=== PATIENT | male | born 1935 | race Native Hawaiian/Other Pacific Islander ===

== ENCOUNTER 2017-04-08 13:55 | Outpatient (CLI) | payer OTHER ==
[2017-04-08 14:29] LABS: POTASSIUM 3.5 mmol/L (3.6-5.2); SODIUM 140 mmol/L (136-145)
[2017-04-08 14:51] LABS: PLATELET COUNT 206 K/uL (142-355)
== END 2017-04-08 19:38 | disposition home or self-care (01) ==
LOC: LAB 13:55
PROVIDERS: Nurse Practitioner Family
DX: K21.9 Gastro-esophageal reflux disease without esophagitis (principal); I10 Essential (primary) hypertension; E55.9 Vitamin D deficiency, unspecified; Z79.899 Other long term (current) drug therapy; N40.0 Benign prostatic hyperplasia without lower urinary tract symptoms; Z51.81 Encounter for therapeutic drug level monitoring
CPT/HCPCS: 80053; 80061; 82306; 82607; 83036; 84154; 84436; 84443; 85027

== ENCOUNTER 2017-12-08 14:40 | Outpatient (CLI) | payer OTHER ==
[2017-12-08 15:14] LABS: PLATELET COUNT 234 K/uL (142-355)
[2017-12-08 15:27] LABS: POTASSIUM 3.6 mmol/L (3.6-5.2)
== END 2017-12-08 21:34 | disposition home or self-care (01) ==
LOC: LAB 14:40
PROVIDERS: Nurse Practitioner Family
DX: I10 Essential (primary) hypertension (principal); E11.9 Type 2 diabetes mellitus without complications; Z79.899 Other long term (current) drug therapy; Z51.81 Encounter for therapeutic drug level monitoring; E55.9 Vitamin D deficiency, unspecified; Z12.5 Encounter for screening for malignant neoplasm of prostate; K21.9 Gastro-esophageal reflux disease without esophagitis; E78.00 Pure hypercholesterolemia, unspecified; Z00.00 Encounter for general adult medical examination without abnormal findings
CPT/HCPCS: 80053; 80061; 80074; 82306; 83036; 84153; 84436; 84443; 85027; 86592; 87490; 87535; 87590

== ENCOUNTER 2018-01-19 10:26 | Outpatient (CLI) | payer OTHER | END 2018-01-19 22:49 | disposition home or self-care (01) | LOC: RAD 10:26 | DX: J40 Bronchitis, not specified as acute or chronic (principal) ==

== ENCOUNTER 2018-01-28 11:34 | Observation (INO) | payer OTHER ==
[~2018-01-28] VITALS: Ht 177.8 cm; Wt 82.1 kg
[2018-01-28 14:40] VITALS: BP 129/75; TEMP 98.8; Ht 177.8 cm; Wt 82.1 kg
[2018-01-28 15:01] LABS: PLATELET COUNT 241 K/uL (142-355)
[2018-01-28 15:06] LABS: PARTIAL THROMBOPLASTIN TIME 23.7 SECONDS (24.5-33.6)
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
[2018-01-28 16:00] VITALS: BP 145/76; TEMP 98.5
[2018-01-28] MEDS ORDERED: VALSARTAN160 MG PO (18:25)
[2018-01-28] MEDS ORDERED: AMLO2.5T PO (18:25)
[2018-01-28] MEDS ORDERED: RANITIDINE 150150 MG PO (18:26)
[2018-01-28 20:10] VITALS: BP 139/68; TEMP 98.9
[2018-01-29 00:17] VITALS: BP 131/72; TEMP 98.8
[2018-01-29 04:17] VITALS: BP 137/78; TEMP 98.9
[2018-01-29 05:29] LABS: PLATELET COUNT 237 K/uL (142-355)
[2018-01-29 05:47] LABS: POTASSIUM 3.8 mmol/L (3.6-5.2)
--- NOTE | 2018-01-29 07:30 | NUR ---
LLE ASSESSED. 13.5 INCHES ON CALF AND 16 INCHES ON THIGH MEASURED. NO REDDNESS OR HEAT NOTED. WILL CONTINUE TO MONNITOR. PT EDUCATEED ON DECRESING MOBILITY. NAD NOTED.
[2018-01-29 07:46] VITALS: BP 130/76; TEMP 98.1
--- NOTE | 2018-01-29 08:29 | NUR ---
MD AND DESIGN SALES CONSULTANT IN TO TALK WITH PT ABOUT CARE. NAD NOTED. WILL CONTINUE TO MONITOR.
[2018-01-29] MEDS ORDERED: ELIQUIS2.5 MG PO (08:57)
--- NOTE | 2018-01-29 09:25 | NUR ---
PT REQUEST TO AMBULATE OUT. NAD NOTED.
== END 2018-01-29 09:25 | disposition home or self-care (01) ==
LOC: US 11:34 → MED/SURG 13:02
PROVIDERS: ADMIT Family Medicine
DX: I82.402 Acute embolism and thrombosis of unspecified deep veins of left lower extremity (principal); I10 Essential (primary) hypertension; E78.4 Other hyperlipidemia
CPT/HCPCS: 36415; 36591; 80053; 85027; 85610; 85730; 93005; 99220; G0378

== ENCOUNTER 2018-02-02 16:24 | Emergency (ER) | payer OTHER ==
[~2018-02-02] VITALS: Ht 177.8 cm; Wt 81.6 kg
[~2018-02-02 16:24] MED LIST: AMLO2.5T PO; ELIQUIS2.5 MG PO; RANITIDINE 150150 MG PO; VALSARTAN160 MG PO
[2018-02-02 17:15] VITALS: BP 148/80; TEMP 98.2
== END 2018-02-02 17:15 | disposition home or self-care (01) ==
LOC: ED 16:24
DX: I82.402 Acute embolism and thrombosis of unspecified deep veins of left lower extremity (principal)
CPT/HCPCS: 99281

== ENCOUNTER 2018-10-02 10:51 | Emergency (ER) | payer OTHER ==
[~2018-10-02] VITALS: Ht 177.8 cm; Wt 83.9 kg
[2018-10-02 11:00] VITALS: TEMP 97.7
[2018-10-02 11:26] LABS: PLATELET COUNT 244 K/uL (142-355)
[2018-10-02 11:34] LABS: POTASSIUM 3.8 mmol/L (3.6-5.2)
[2018-10-02 11:41] LABS: PARTIAL THROMBOPLASTIN TIME 21.9 SECONDS (24.5-33.6)
[2018-10-02 12:38] VITALS: BP 156/78
== END 2018-10-02 12:38 | disposition home or self-care (01) ==
LOC: ED 10:51
PROVIDERS: Allergy & Immunology
DX: M79.605 Pain in left leg (principal)
CPT/HCPCS: 36415; 80053; 85027; 85610; 85730; 99283

== ENCOUNTER 2019-07-30 11:23 | Emergency (ER) | payer OTHER ==
[~2019-07-30] VITALS: Ht 177.8 cm; Wt 81.6 kg
[2019-07-30 12:46] LABS: POTASSIUM 4.2 mmol/L (3.6-5.2)
[2019-07-30 12:48] LABS: PLATELET COUNT 210 K/uL (142-355)
[2019-07-30 13:36] VITALS: BP 141/73; TEMP 97.7
== END 2019-07-30 13:55 | disposition home or self-care (01) ==
LOC: ED 11:23
PROVIDERS: Family Medicine
DX: M51.36 Other intervertebral disc degeneration, lumbar region (principal); S30.810A Abrasion of lower back and pelvis, initial encounter; W18.39XA Other fall on same level, initial encounter; Y92.89 Other specified places as the place of occurrence of the external cause
CPT/HCPCS: 80053; 81000; 85027; 99283

== ENCOUNTER 2019-08-30 12:47 | Outpatient (CLI) | payer OTHER | END 2019-08-30 20:46 | disposition home or self-care (01) | LOC: MRI 12:47 | DX: M54.16 Radiculopathy, lumbar region (principal) ==

== ENCOUNTER 2020-03-30 15:31 | Outpatient (CLI) | payer OTHER | END 2020-03-30 20:49 | disposition home or self-care (01) | LOC: RESP 15:31 | DX: R06.02 Shortness of breath (principal); R53.83 Other fatigue | CPT/HCPCS: 93005 ==

== ENCOUNTER 2020-04-06 08:48 | Outpatient (CLI) | payer OTHER | END 2020-04-06 21:50 | disposition home or self-care (01) | LOC: US 08:48 | DX: R06.02 Shortness of breath (principal); R53.83 Other fatigue ==

== ENCOUNTER 2020-05-03 12:45 | Outpatient (CLI) | payer OTHER | END 2020-05-03 19:46 | disposition home or self-care (01) | LOC: LAB 12:45 | DX: R53.83 Other fatigue (principal); R50.9 Fever, unspecified | CPT/HCPCS: 87635; G2023; U0003 ==

== ENCOUNTER 2020-11-29 10:08 | Outpatient (CLI) | payer OTHER ==
[2020-11-29 11:10] LABS: PLATELET COUNT 182 K/uL (142-355)
[2020-11-29 11:27] LABS: POTASSIUM 3.5 mmol/L (3.6-5.2)
[2020-11-29 11:30] LABS: PARTIAL THROMBOPLASTIN TIME 21.2 SECONDS (24.5-33.6)
== END 2020-11-29 21:07 | disposition home or self-care (01) ==
LOC: LABW 10:08
PROVIDERS: ATTEND Internal Medicine
DX: I10 Essential (primary) hypertension (principal); I82.4Z2 Acute embolism and thrombosis of unspecified deep veins of left distal lower extremity
CPT/HCPCS: 36415; 80053; 80061; 81000; 82607; 84439; 84443; 85027; 85220; 85300; 85303; 85306; 85610; 85730

== ENCOUNTER 2020-12-13 15:12 | Observation (INO) | payer OTHER ==
[~2020-12-13] VITALS: Ht 177.8 cm; Wt 81.2 kg
[2020-12-13 16:54] LABS: PLATELET COUNT 249 K/uL (142-355)
[2020-12-13 17:02] LABS: POTASSIUM 3.8 mmol/L (3.6-5.2)
[2020-12-13] MEDS ORDERED: ACID CONTROL20 MG PO (17:08)
[2020-12-13] MEDS ORDERED: COZAAR25 MG PO (17:08)
[2020-12-13] MEDS ORDERED: ELIQUIS5 MG PO (17:09)
[2020-12-13] MEDS ORDERED: NEURONTIN 100M100 MG PO (17:09)
[2020-12-13 17:44] VITALS: BP 146/85; TEMP 98.6; Ht 177.8 cm; Wt 81.2 kg
[2020-12-13 20:23] VITALS: BP 152/81; TEMP 98.5
--- NOTE | 2020-12-13 20:30 | NUR ---
AT PT'S BEDSIDE AND PT RESPONDS WELL TO VERBAL AND TACTILE STIMULI. BOTH LOWER EXTREMITIES ELEVATED AT THIS TIME. VISUAL YELLOW DISCOLORATION TO THE RIGHT LOWER LEG COMPARED TO THE LEFT. BLACKENED DISCOLORED AREA AROUND THE RIGHT BIG TOE. PT STATES HIS RIGHT LOWER EXTREMITY HAS BEEN CRAMPING FOR THE PAST 4-5 MONTHS AND WORSENS IN THE MORNINGS.
[2020-12-14 00:03] VITALS: BP 131/74; TEMP 98.6
[2020-12-14 01:22] LABS: POTASSIUM 3.9 mmol/L (3.6-5.2)
[2020-12-14 01:51] LABS: PLATELET COUNT 189 K/uL (142-355)
--- NOTE | 2020-12-14 03:15 | NUR ---
PT. SLEEPING COMFORTABLY IN A LOW-FOWLERS POSITION AND SEEMS TO BE IN NO DISTRESS OR DISCOMFORT AT THIS TIME.
[2020-12-14 04:00] VITALS: BP 166/82; TEMP 97.7
[2020-12-14 08:00] VITALS: BP 153/71; TEMP 98.1
[2020-12-14 12:00] VITALS: BP 160/76; TEMP 98.2
[2020-12-14] MEDS ORDERED: 904272561 PO (14:41)
--- NOTE | 2020-12-14 15:05 | NUR ---
PT TO DESK STATING HE HAD TO LEAVE IN 15MIN TO PICK SOMEONE UP- PT HAD REMOVED IV AND HAD BELONGINGS IN HAND. PT ENCOURAGED TO RETURN TO ROOM AND WAIT FOR DC PACKET. UNABLE TO SCHEDULE F/U APPT D/T PATIENT NEEDING TO LEAVE.
--- NOTE | 2020-12-14 15:19 | NUR ---
DC INSTRUCTIONS EXPLAINED TO PT WHO VERBALZIZED UNDERSTANDING. PT LEFT FLOOR IN NAD VIA WC. BELONGINGS SENT HOME WITH PT.
== END 2020-12-14 15:17 | disposition home or self-care (01) ==
LOC: MED/SURG 15:12
PROVIDERS: ADMIT Internal Medicine; ATTEND Internal Medicine
DX: I82.491 Acute embolism and thrombosis of other specified deep vein of right lower extremity (principal); I10 Essential (primary) hypertension; E78.49 Other hyperlipidemia; K21.9 Gastro-esophageal reflux disease without esophagitis
CPT/HCPCS: 36415; 80048; 80053; 85027; 85379; 85652; 87635; 96365; 99220; G0378; G0379; J0696; U0003

== ENCOUNTER 2021-01-15 08:27 | Outpatient (CLI) | payer OTHER ==
[~2021-01-15 08:27] MED LIST changes: +904272561 PO; +ACID CONTROL20 MG PO; +COZAAR25 MG PO; +ELIQUIS5 MG PO; +NEURONTIN 100M100 MG PO
== END 2021-01-15 19:41 | disposition home or self-care (01) ==
LOC: MRI 08:27
PROVIDERS: ATTEND Internal Medicine
DX: M51.06 Intervertebral disc disorders with myelopathy, lumbar region (principal)

== ENCOUNTER 2021-09-20 09:50 | Emergency (ER) | payer OTHER ==
[~2021-09-20] VITALS: Ht 177.8 cm; Wt 81.2 kg
[2021-09-20 10:42] VITALS: BP 150/80; TEMP 98
== END 2021-09-20 10:07 | disposition home or self-care (01) ==
LOC: ED 09:50
DX: I10 Essential (primary) hypertension (principal)
CPT/HCPCS: 99281

== ENCOUNTER 2022-10-10 08:23 | Emergency (ER) | payer OTHER ==
[~2022-10-10] VITALS: Ht 177.8 cm; Wt 83.0 kg
[2022-10-10 08:25] VITALS: TEMP 97.8
[2022-10-10 09:16] LABS: POTASSIUM 3.6 mmol/L (3.6-5.2)
[2022-10-10 09:25] LABS: PLATELET COUNT 261 K/uL (142-355)
[2022-10-10 12:18] VITALS: BP 157/79
== END 2022-10-10 11:20 | disposition home or self-care (01) ==
LOC: ED 08:23
PROVIDERS: Emergency Medicine Emergency Medical Services
DX: S00.03XA Contusion of scalp, initial encounter (principal); S20.211A Contusion of right front wall of thorax, initial encounter; W01.198A Fall on same level from slipping, tripping and stumbling with subsequent striking against other object, initial encounter; Y92.89 Other specified places as the place of occurrence of the external cause
CPT/HCPCS: 36415; 80048; 85027; 96360; 96374; 96376; 99283; 99284; J2270; J2405; Q9963